=== PATIENT | female | born 1985 | race Caucasian/White ===

== ENCOUNTER 2019-09-14 20:16 | Emergency (ER) | payer SELFPAY ==
[2019-09-14 20:23] VITALS: BP 141/100; PULSE 110; RESP 16; TEMP 36.7; O2SAT 99
[2019-09-14 20:28] VITALS: BP 139/87; PULSE 110; RESP 18; TEMP 36.8; O2SAT 100
--- NOTE | 2019-09-14 20:44 | ED.SKABFB ---
HPI - Skin/Abscess/Foreign Bdy General Chief complaint: Skin/Abscess/Foreign Body Stated complaint: wounds Time Seen by Provider: 09/14/19 20:33 Source: patient Mode of arrival: ambulatory Limitations: no limitations History of Present Illness HPI narrative: Patient presents to the emergency department for wounds to the skin that she has had trouble with over the last year. Reports to that are especially swollen and painful. One on her neck and one on her groin. Reports some drainage from the wound on her neck. Denies fever. Related Data Allergies Allergy/AdvReac Type Severity Reaction Status Date / Time No Known Allergies Allergy Mild Verified 09/14/19 20:46 Review of Systems Review of Systems: Narrative: CONSTITUTIONAL: Denies fever SKIN: Reports abscess All systems reviewed & are unremarkable except as noted in HPI and below PMFSH Family History Family History (Updated 11/15/13 @ 07:13 by DOCTOR UNKNOWN) Mother Family history of peptic ulcer Father Family history of malignant neoplasm of stomach, Onset Age: 56 Social History Social History (Updated 09/14/19 @ 20:45 by Nargis Vasquez PA-C) Smoking status: Heavy tobacco smoker Alcohol intake: current Substance use: current Substance use type: amphetamines Gender identity (if verbalized by the patient): Female Exam Narrative: Exam Narrative: GENERAL: Well-appearing, well-nourished, and in no acute distress. HEAD: Normocephalic, atraumatic. EYES: EOMI. NECK: Supple. No adenopathy or masses. Right side of the neck with small, 1.5 cm abscess, spontaneously draining CHEST: Clear to auscultation. No respiratory distress. No wheezes rales or rhonchi HEART: Regular rate and rhythm. No murmur heard. Normal peripheral pulses. EXTREMITIES: Normal range of motion. No edema. Left suprapubic region with 2 cm abscess with moderate surrounding cellulitis SKIN: Warm, dry, no rash. NEURO: No focal deficits. Alert and oriented x3. PSYCH: Normal mood and affect Course Vital Signs Vital signs: Vital Signs Temperature 98.1 F 09/14/19 20:23 Pulse Rate 110 H 09/14/19 20:23 Respiratory Rate 16 09/14/19 20:23 Blood Pressure 141/100 H 09/14/19 20:23 Pulse Oximetry 99 09/14/19 20:23 Temperature 98.2 F 09/14/19 20:28 Pulse Rate 110 H 09/14/19 20:28 Respiratory Rate 18 09/14/19 20:28 Blood Pressure 139/87 09/14/19 20:28 Pulse Oximetry 100 09/14/19 20:28 MDM - Skin/Abscess/Foreign Bdy MDM Narrative Medical decision making narrative: Patient presents the emergency department for an abscess to the right side of her neck and in her left suprapubic region. Patient is afebrile and nontoxic-appearing. Neck abscess is spontaneously draining. Patient refuses I&D of abscesses. Instructed her that these are likely not going to get better until they are opened so they can drain. She will be started on oral antibiotics. She was given warnings to return to the ER Critical Care Time Critical Care Time Critical Care Time: No Discharge Plan Discharge Clinical Impression: Abscess of skin or subcutaneous tissue Qualifiers: Site of cutaneous abscess: trunk Site of cutaneous abscess of trunk: groin Qualified Code(s): L02.214 - Cutaneous abscess of groin Patient Disposition: Home, Self-Care Condition: Stable Instructions: Antibiotic Form, Abscess (ED) Additional Instructions: Return if symptoms worsen or concerns: any increase in redness, swelling, pain, or fever over 101 Take antibiotics as directed. Clean wound with mild soapy water. Warm compresses to the areas multiple times daily Follow up with primary care in the next 2-3 days for re-evaluation Prescriptions: New clindamycin HCl 300 mg capsule 300 mg PO Q6H 10 Days Qty: 40 RF: 0 Follow-up/Referrals: Rosalba Solis MD [Physician] - 3 Days PHYSICIAN,COUNTER [employer] [Primary Care Provider] -
[2019-09-14 21:45] VITALS: BP 108/74; PULSE 99; RESP 20; O2SAT 99
== END 2019-09-14 21:48 | disposition home or self-care (01) ==
PROVIDERS: Emergency Provider Emergency Medicine
DX: L02.214 Cutaneous abscess of groin (principal); F17.200 Nicotine dependence, unspecified, uncomplicated
CPT/HCPCS: 99283